=== PATIENT | female | born 1935 | race American Indian/Alaskan Native ===

== ENCOUNTER 2021-06-04 02:00 | Inpatient (IN) | payer MEDICARE ==
[2021-06-04] MEDS ORDERED: SODIUM CHLORIDE 0.9% 1000 ML 1,000 ML IV ONE (02:14)
--- NOTE | 2021-06-04 02:15 | Emergency Department Report ---
ED Altered Mental Status HPI - General Chief Complaint: Altered Mental Status Stated Complaint: SEIZURE/DEHYDRATION PUI?: No Time Seen by Provider: 06/04/21 02:10 Source: EMS Mode of arrival: Stretcher Limitations: Altered Mental Status, Physical Limitation - History of Present Illness Initial Comments: Patient is an 86-year-old female who presents emergency room with altered mental status, seizure-like activity. Patient's family called EMS. Patient brought in by EMS. Reports EMS states the patient has low blood pressure and tachycardic. EMS unable to obtain IV access. EMS unable to obtain an accurate blood pressure. EMS states patient has a past medical hypertension seizure. EMS does not know the patient's baseline. MD Complaint: altered mental status, decreased responsiveness -: Sudden Consistency of Symptoms: getting worse - Related Data Allergies Allergy/AdvReac Type Severity Reaction Status Date / Time No Known Allergies Allergy Verified 06/04/21 02:30 ED Review of Systems ROS: Stated complaint: SEIZURE/DEHYDRATION Other details as noted in HPI Comment: Unobtainable due to pts medical conditions ED Past Medical Hx - Past Medical History Previous Medical History?: Yes Hx Hypertension: Yes Hx Seizures: Yes - Surgical History Past Surgical History?: No - Family History Family history: no significant - Social History Smoking Status: Unknown if ever smoked Substance Use Type: None ED Physical Exam - General General appearance: obtunded - Head Head exam: Present: atraumatic, normocephalic - Eye Eye exam: Present: normal appearance, PERRL Pupils: Present: normal accommodation - ENT ENT exam: Present: mucous membranes dry - Neck Neck exam: Present: normal inspection - Respiratory Respiratory exam: Present: normal lung sounds bilaterally. Absent: respiratory distress, wheezes, rales - Cardiovascular Cardiovascular Exam: Present: regular rate, normal rhythm, tachycardia, normal heart sounds. Absent: systolic murmur, diastolic murmur, rubs, gallop - GI/Abdominal GI/Abdominal exam: Present: soft, normal bowel sounds. Absent: distended, tenderness, guarding - Rectal Rectal exam: Present: deferred - Extremities Exam Extremities exam: Present: normal inspection, other (Lower extremities are contracted.) - Back Exam Back exam: Present: normal inspection - Neurological Exam Neurological exam: Present: altered - Expanded Neurological Exam Expanded Best Eye Response (James): (4) open spontaneously Best Motor Response (James): (4) withdraws to pain Best Verbal Response ([place]): (2) incomprehsible sounds [place] Total: 10 - Psychiatric Psychiatric exam: Present: normal affect, normal mood - Skin Skin exam: Present: warm, dry, intact, normal color. Absent: rash - Assessment Assessment Interval: Baseline - Level of Consciousness 1a. Level of Consciousness: alert/keenly responsive - LOC Questions 1b. LOC Questions: aphasic - LOC Command 1c. LOC Commands: performs no tasks correctly - Best Gaze 2. Best Gaze: normal - Visual 3. Visual: no visual loss - Facial Palsy 4. Facial Palsy: normal symmetrical movement - Motor Arm 5a. Motor Arm Left: some gravity effort 5b. Motor Arm Right: some gravity effort - Motor Leg 6a. Motor Leg Left: some gravity effort 6b. Motor Leg Right: some gravity effort - Limb Ataxia 7. Limb Ataxia: absent - Sensory 8. Sensory: normal - Best Language 9. Best Language: no aphasia - Dysarthria 10. Dysarthria: normal - Extinction and Inattention 11. Extinction/Inattention: no abnormality - Scoring Total Score: 12 Stroke Severity: Moderate Stroke ED Course Vital Signs 06/04/21 06/04/21 06/04/21 02:29 03:09 03:35 Temperature 95.9 F L Pulse Rate 120 H Respiratory 16 Rate Blood Pressure Blood Pressure 135/86 [Right] O2 Sat by Pulse 100 100 98 Oximetry 06/04/21 06/04/21 04:00 05:05 Temperature 96.5 F L Pulse Rate 90 88 Respiratory 17 14 Rate Blood Pressure 165/97 Blood Pressure 148/94 [Right] O2 Sat by Pulse 97 100 Oximetry - Reevaluation(s) Reevaluation #1: Patient's heart rate is improved. Patient's blood pressure has been stable. No change in the patient's mentation. 06/04/21 03:19 Reevaluation #2: Patient to be admitted. 06/04/21 04:20 - Consultations Consultation #1: Hospitalist consulted for admission. Hospitalist to admit patient. 06/04/21 04:20 - Lab Data Result diagrams: 06/04/21 02:28 06/04/21 02:28 Lab Results 06/04/21 06/04/21 06/04/21 Range/Units 02:28 02:28 02:28 WBC 6.8 (4.5-11.0) K/mm3 RBC 4.23 (3.65-5.03) M/mm3 Hgb 13.6 (10.1-14.3) gm/dl Hct 41.2 (30.3-42.9) % MCV 97 (79-97) fl MCH 32 (28-32) pg MCHC 33 (30-34) % RDW 15.7 H (13.2-15.2) % Plt Count 204 (140-440) K/mm3 Lymph % (Auto) 27.5 (13.4-35.0) % [place] % (Auto) 2.6 (0.0-7.3) % Eos % (Auto) 0.1 (0.0-4.3) % Baso % (Auto) 0.1 (0.0-1.8) % Lymph # (Auto) 1.9 (1.2-5.4) K/mm3 [place] # (Auto) 0.2 (0.0-0.8) K/mm3 Eos # (Auto) 0.0 (0.0-0.4) K/mm3 Baso # (Auto) 0.0 (0.0-0.1) K/mm3 Seg Neutrophils % 69.7 (40.0-70.0) % Seg Neutrophils # 4.8 (1.8-7.7) K/mm3 PT 14.1 (12.2-14.9) Sec. INR 1.04 (0.87-1.13) APTT 27.2 (24.2-36.6) Sec. Sodium 158 H (137-145) mmol/L Potassium 4.3 (3.6-5.0) mmol/L Chloride 117.0 H (98-107) mmol/L Carbon Dioxide 26 (22-30) mmol/L Anion Gap 19 mmol/L BUN 45 H (7-17) mg/dL Creatinine 1.1 (0.6-1.2) mg/dL Estimated GFR 47 ml/min BUN/Creatinine Ratio 41 % Glucose 174 H (65-100) mg/dL Lactic Acid (0.7-2.0) mmol/L Calcium 9.6 (8.4-10.2) mg/dL Total Bilirubin 0.50 (0.1-1.2) mg/dL AST 15 (5-40) units/L ALT 11 (7-56) units/L Alkaline Phosphatase 119 (35-129) units/L Ammonia (25-60) umol/L Total Creatine Kinase 64 (30-135) units/L Troponin T 0.025 (0.00-0.029) ng/mL Total Protein 8.1 (6.3-8.2) g/dL Albumin 2.9 L (3.9-5) g/dL Albumin/Globulin Ratio 0.6 % Urine Color (Yellow) Urine Turbidity (Clear) Urine pH (5.0-7.0) Ur Specific [place] (1.003-1.030) Urine Protein (Negative) mg/dL Urine Glucose (UA) (Negative) mg/dL Urine Ketones (Negative) mg/dL Urine Blood (Negative) Urine Nitrite (Negative) Urine Bilirubin (Negative) Urine Urobilinogen (<2.0) mg/dL Ur Leukocyte Esterase (Negative) Urine WBC (Auto) (0.0-6.0) /HPF Urine RBC (Auto) (0.0-6.0) /HPF U Epithel Cells (Auto) (0-13.0) /HPF 06/04/21 06/04/21 06/04/21 Range/Units 02:28 02:28 03:07 WBC (4.5-11.0) K/mm3 RBC (3.65-5.03) M/mm3 Hgb (10.1-14.3) gm/dl Hct (30.3-42.9) % MCV (79-97) fl MCH (28-32) pg MCHC (30-34) % RDW (13.2-15.2) % Plt Count (140-440) K/mm3 Lymph % (Auto) (13.4-35.0) % [place] % (Auto) (0.0-7.3) % Eos % (Auto) (0.0-4.3) % Baso % (Auto) (0.0-1.8) % Lymph # (Auto) (1.2-5.4) K/mm3 [place] # (Auto) (0.0-0.8) K/mm3 Eos # (Auto) (0.0-0.4) K/mm3 Baso # (Auto) (0.0-0.1) K/mm3 Seg Neutrophils % (40.0-70.0) % Seg Neutrophils # (1.8-7.7) K/mm3 PT (12.2-14.9) Sec. INR (0.87-1.13) APTT (24.2-36.6) Sec. Sodium (137-145) mmol/L Potassium (3.6-5.0) mmol/L Chloride (98-107) mmol/L Carbon Dioxide (22-30) mmol/L Anion Gap mmol/L BUN (7-17) mg/dL Creatinine (0.6-1.2) mg/dL Estimated GFR ml/min BUN/Creatinine Ratio % Glucose (65-100) mg/dL Lactic Acid 6.70 H* (0.7-2.0) mmol/L Calcium (8.4-10.2) mg/dL Total Bilirubin (0.1-1.2) mg/dL AST (5-40) units/L ALT (7-56) units/L Alkaline Phosphatase (35-129) units/L Ammonia 29.0 (25-60) umol/L Total Creatine Kinase (30-135) units/L Troponin T (0.00-0.029) ng/mL Total Protein (6.3-8.2) g/dL Albumin (3.9-5) g/dL Albumin/Globulin Ratio % Urine Color Yellow (Yellow) Urine Turbidity Clear (Clear) Urine pH 5.0 (5.0-7.0) Ur Specific [place] 1.025 (1.003-1.030) Urine Protein 30 mg/dl (Negative) mg/dL Urine Glucose (UA) Neg (Negative) mg/dL Urine Ketones Neg (Negative) mg/dL Urine Blood Mod (Negative) Urine Nitrite Neg (Negative) Urine Bilirubin Neg (Negative) Urine Urobilinogen 2.0 (<2.0) mg/dL Ur Leukocyte Esterase Neg (Negative) Urine WBC (Auto) 1.0 (0.0-6.0) /HPF Urine RBC (Auto) 5.0 (0.0-6.0) /HPF U Epithel Cells (Auto) 1.0 (0-13.0) /HPF 06/04/21 06/04/21 Range/Units 04:02 04:02 WBC (4.5-11.0) K/mm3 RBC (3.65-5.03) M/mm3 Hgb (10.1-14.3) gm/dl Hct (30.3-42.9) % MCV (79-97) fl MCH (28-32) pg MCHC (30-34) % RDW (13.2-15.2) % Plt Count (140-440) K/mm3 Lymph % (Auto) (13.4-35.0) % [place] % (Auto) (0.0-7.3) % Eos % (Auto) (0.0-4.3) % Baso % (Auto) (0.0-1.8) % Lymph # (Auto) (1.2-5.4) K/mm3 [place] # (Auto) (0.0-0.8) K/mm3 Eos # (Auto) (0.0-0.4) K/mm3 Baso # (Auto) (0.0-0.1) K/mm3 Seg Neutrophils % (40.0-70.0) % Seg Neutrophils # (1.8-7.7) K/mm3 PT (12.2-14.9) Sec. INR (0.87-1.13) APTT (24.2-36.6) Sec. Sodium (137-145) mmol/L Potassium (3.6-5.0) mmol/L Chloride (98-107) mmol/L Carbon Dioxide (22-30) mmol/L Anion Gap mmol/L BUN (7-17) mg/dL Creatinine (0.6-1.2) mg/dL Estimated GFR ml/min BUN/Creatinine Ratio % Glucose (65-100) mg/dL Lactic Acid < 0.20 L (0.7-2.0) mmol/L Calcium (8.4-10.2) mg/dL Total Bilirubin (0.1-1.2) mg/dL AST (5-40) units/L ALT (7-56) units/L Alkaline Phosphatase (35-129) units/L Ammonia (25-60) umol/L Total Creatine Kinase (30-135) units/L Troponin T 0.028 (0.00-0.029) ng/mL Total Protein (6.3-8.2) g/dL Albumin (3.9-5) g/dL Albumin/Globulin Ratio % Urine Color (Yellow) Urine Turbidity (Clear) Urine pH (5.0-7.0) Ur Specific [place] (1.003-1.030) Urine Protein (Negative) mg/dL Urine Glucose (UA) (Negative) mg/dL Urine Ketones (Negative) mg/dL Urine Blood (Negative) Urine Nitrite (Negative) Urine Bilirubin (Negative) Urine Urobilinogen (<2.0) mg/dL Ur Leukocyte Esterase (Negative) Urine WBC (Auto) (0.0-6.0) /HPF Urine RBC (Auto) (0.0-6.0) /HPF U Epithel Cells (Auto) (0-13.0) /HPF - EKG Data -: EKG Interpreted by Me EKG shows normal: sinus rhythm, axis, intervals, QRS complexes, ST-T waves Rate: normal - Radiology Data Radiology results: report reviewed, image reviewed interpreted by me: Chest x-ray: No pneumonia, no pneumothorax, no foreign body, no osseous findings, no acute findings CHEST 1 VIEW 06/04/2021 2:19 AM INDICATION / CLINICAL INFORMATION: Altered Mental Status. COMPARISON: None available. FINDINGS: The patient is rotated to the left. SUPPORT DEVICES: None. HEART / MEDIASTINUM: Moderate aortic atherosclerosis without other significant abnormalities. LUNGS / PLEURA: Retrocardiac opacities could represent summation of normal structures secondary to patient rotation. The lungs are otherwise clear. No significant pleural effusion. No pneumothorax. ADDITIONAL FINDINGS: No significant additional findings. IMPRESSION: Retrocardiac opacities are favored to be due to patient positioning. Close ra diographic follow-up with better patient positioning is recommended. No other acute findings. CT HEAD WITHOUT CONTRAST INDICATION : Altered Mental Status. Status post seizure. TECHNIQUE: Axial, coronal and sagittal CT imaging was performed from the skull apex through the skull base without contrast. All CT scans at this location are performed using CT dose reduction for ALARA by means of automated exposure control. COMPARISON: None available. FINDINGS: The study is limited by contracted positioning of the patient. The patient could not be positioned supine. Motion artifact also limits portions of the study. PARENCHYMA: No mass, midline shift, hemorrhage, extraaxial collection or acute territorial infarction. 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 VENTRICLES: Symmetric and normal in size. SOFT TISSUES: No significant abnormality of the included soft tissues/orbits. BONES: No acute osseous abnormality. SINUSES: Extensive opacification of the maxillary sinuses is noted without other significant abnormalities. ADDITIONAL FINDINGS: None. IMPRESSION: 1. No acute intracranial abnormality. 2. Additional findings as above. - Medical Decision Making Patient is an 86-year-old female who presents emergency room with altered mental status and possible seizure activity and possible dehydration. Patient brought in by EMS. EMS report received. EMS states that family saw seizure-like activity. Patient has been having a seizure and hypertension. Patient is minimally responsive. Baseline mental status is unknown. Patient had a head CT which is negative for acute finding. Patient had a chest x-ray which was negative for acute finding patient labs done which show dehydration and hypernatremia. Patient also found to have lactic acidosis. Patient had a EKG which was negative for acute findings. Patient was initially tachycardic and then after fluids the patient became sinus rhythm. Patient given early antibiotics. Patient admitted to the hospital service for further evaluation treatment. Critical care time documented due to the multiple reassessments, prolonged time at the bedside, interpretation of diagnostics and labs. - Differential Diagnosis Altered mental status, tachycardia, sepsis, UTI, dehydration Critical Care Time: Yes Critical care time in (mins) excluding proc time.: 35 Critical care attestation.: If time is entered above; I have spent that time in minutes in the direct care of this critically ill patient, excluding procedure time. Critical Care Time: 35 minutes ED Disposition Clinical Impression: Dehydration, Hypernatremia, Lactic acid acidosis, Seizure Altered mental status Qualifiers: Altered mental status type: unspecified Qualified Code(s): R41.82 - Altered mental status, unspecified Disposition: DC-09 OP ADMIT IP TO THIS HOSP Is pt being admited?: Yes Does the pt Need Aspirin: No Condition: Critical Time of Disposition: 04:24
[2021-06-04] MEDS ORDERED: levETIRAcetam 1000 MG/NS 0.75% 1,000 MG/100 ML BAG IV ONE (02:16)
[2021-06-04] MEDS ORDERED: CEFEPIME/NS 2 GM/100 ML 2 GM/100 ML BAG IV ONE (02:16)
[2021-06-04 02:43] LABS: Basophils % (Auto) 0.1 % (0.0-1.8); Eosinophils % (Auto) 0.1 % (0.0-4.3); Hematocrit 41.2 % (30.3-42.9); Hemoglobin 13.6 gm/dl (10.1-14.3); Lymphocytes # (Auto) 1.9 K/mm3 (1.2-5.4); Lymphocytes % (Auto) 27.5 % (13.4-35.0); Mean Corpuscular HGB Conc 33 % (30-34); Mean Corpuscular Volume 97 fl (79-97); Monocytes # (Auto) 0.2 K/mm3 (0.0-0.8); Monocytes % (Auto) 2.6 % (0.0-7.3); Platelet Count 204 K/mm3 (140-440); Red Blood Count 4.23 M/mm3 (3.65-5.03); Red Cell Distribution Width 15.7 % (13.2-15.2)
--- NOTE | 2021-06-04 02:44 | XRay Report ---
CHEST 1 VIEW 06/04/2021 2:19 AM INDICATION / CLINICAL INFORMATION: Altered Mental Status. COMPARISON: None available. FINDINGS: The patient is rotated to the left. SUPPORT DEVICES: None. HEART / MEDIASTINUM: Moderate aortic atherosclerosis without other significant abnormalities. LUNGS / PLEURA: Retrocardiac opacities could represent summation of normal structures secondary to pa tient rotation. The lungs are otherwise clear. No significant pleural effusion. No pneumothorax. ADDITIONAL FINDINGS: No significant additional findings. IMPRESSION: Retrocardiac opacities are favored to be due to patient positioning. Close radiographic follow-up wit h better patient positioning is recommended. No other acute findings. Signer Name: Jose Daniel Lowe MD Signed: 06/04/2021 2:39 AM Workstation Name: [id number]
[2021-06-04 02:52] LABS: INR 1.04 (0.87-1.13); Partial Thromboplastin Time 27.2 Sec. (24.2-36.6)
[2021-06-04 03:03] LABS: Albumin 2.9 g/dL (3.9-5); Calcium 9.6 mg/dL (8.4-10.2)
[2021-06-04] MEDS ORDERED: SODIUM CHLORIDE 0.9% 1000 ML IV SOLN IV ONE (03:22)
[2021-06-04 03:25] LABS: Bilirubin,Urine NEG (Negative); Blood,Urine MOD (Negative); Color,Urine Yellow (Yellow)
--- NOTE | 2021-06-04 04:00 | Cat Scan Report ---
CT HEAD WITHOUT CONTRAST INDICATION : Altered Mental Status. Status post seizure. TECHNIQUE: Axial, coronal and sagittal CT imaging was performed from the skull apex through the skul l base without contrast. All CT scans at this location are performed using CT dose reduction for ALA RA by means of automated exposure control. COMPARISON: None available. FINDINGS: The study is limited by contracted positioning of the patient. The patient could not be positioned [place]. Motion artifact also limits portions of the study. PARENCHYMA: No mass, midline shift, hemorrhage, extraaxial collection or acute territorial infarctio n. Areas of low attenuation along the periventricular white matter are likely related to chronic murtaza roangiopathy. VENTRICLES: Symmetric and normal in size. SOFT TISSUES: No significant abnormality of the included soft tissues/orbits. BONES: No acute osseous abnormality. SINUSES: Extensive opacification of the maxillary sinuses is noted without other significant abnormal ities. ADDITIONAL FINDINGS: None. IMPRESSION: 1. No acute intracranial abnormality. 2. Additional findings as above. Signer Name: Jose Daniel Lowe MD Signed: 06/04/2021 3:55 AM Workstation Name: [id number]
--- NOTE | 2021-06-04 05:11 | History and Physical Report ---
History of Present Illness Date of examination: 06/04/21 Date of admission: 06/04/21 Chief complaint: Altered mental status History of present illness: This is a 86-year-old female who presents to emergency room with altered mental status and seizure-like activity. Patient has a past medical history of hypertension and seizures. Patient seen in the ED awake, confused, and appears very frail and her bilateral legs contracted. I reviewed patients medical record lab values -patient has elevated sodium 158, CT of the head done no acute finding. Checks x-ray no acute finding. Per ED Reports EMS states the patient has low blood pressure and tachycardic. Will admit patient for dehydration and altered mental status. Patient started on IV hydration Past History Past Medical History: seizures Past Surgical History: Other (Unable to assess patient is confused. No family present at time of assessment) Medications and Allergies Allergies Allergy/AdvReac Type Severity Reaction Status Date / Time No Known Allergies Allergy Verified 06/04/21 02:30 Review of Systems Constitutional: fatigue, weakness, malaise Ears, nose, mouth and throat: no epistaxis, no bleeding gums Gastrointestinal: no melena Rectal: no hemorrhoids Integumentary: no rash, no pruritis Neurological: seizures Psychiatric: anxiety Hematologic/Lymphatic: no easy bruising, no easy bleeding Allergic/Immunologic: no urticaria Exam - Constitutional Vitals: Temp Pulse Resp BP Pulse Ox 95.9 F L 90 17 165/97 97 06/04/21 03:09 06/04/21 04:00 06/04/21 04:00 06/04/21 04:00 06/04/21 04:00 General appearance: Present: no acute distress, mild distress, cachectic (Frail appearing elderly patient in position) - EENT Eyes: Present: PERRL ENT: hearing intact, clear oral mucosa - Neck Neck: Present: supple, normal ROM - Respiratory Respiratory effort: normal Respiratory: bilateral: CTA - Cardiovascular Heart rate: 88 Heart Sounds: Present: S1 & S2. Absent: rub, click - Extremities Extremities: pulses symmetrical, No edema Peripheral Pulses: within normal limits - Abdominal General gastrointestinal: Present: soft, non-tender, non-distended, normal bowel sounds Female genitourinary: Present: normal - Integumentary Integumentary: Present: clear, warm, dry - Musculoskeletal Musculoskeletal: generalized weakness (Bilateral extremity contraction) - Psychiatric Psychiatric: appropriate mood/affect, intact judgment & insight - Neurologic Neurologic: CNII-XII intact, other (Bilateral legs contracted) - Allied Health Allied health notes reviewed: nursing, PT HEART Score - HEART Score Troponin: Troponin T 0.028 ng/mL (0.00-0.029) 06/04/21 04:02 Results - Labs CBC & Chem 7: 06/04/21 02:28 06/04/21 02:28 Labs: Abnormal lab results 06/04/21 06/04/21 06/04/21 Range/Units 02:28 02:28 02:28 RDW 15.7 H (13.2-15.2) % Sodium 158 H (137-145) mmol/L Chloride 117.0 H (98-107) mmol/L BUN 45 H (7-17) mg/dL Glucose 174 H (65-100) mg/dL Lactic Acid 6.70 H* (0.7-2.0) mmol/L Albumin 2.9 L (3.9-5) g/dL 06/04/21 Range/Units 04:02 RDW (13.2-15.2) % Sodium (137-145) mmol/L Chloride (98-107) mmol/L BUN (7-17) mg/dL Glucose (65-100) mg/dL Lactic Acid < 0.20 L (0.7-2.0) mmol/L Albumin (3.9-5) g/dL Assessment and Plan - Patient Problems (1) Acute metabolic encephalopathy Status: Acute Plan to address problem: Questionable cause-dehydration/infection Patient confused with verbal stimuli Unable to obtain information from patient due to confusion Safety and fall precaution Blood culture done (2) Dehydration Status: Acute Plan to address problem: Likely secondary to decreased free water intake Continue IV hydration Encourage oral intake (3) Hypernatremia Status: Acute Plan to address problem: Likely secondary to dehydration/decreased oral fluid intake Monitor sodium level Continue IV hydration (4) Lactic acid acidosis Status: Acute Plan to address problem: Questionable cause but has improved continue IV hydration Blood culture follow-up with results trend lactic acid (5) Seizure Status: Acute Plan to address problem: Seizure precaution We will resume home antiseizure medication (6) Severe protein-calorie malnutrition Status: Acute Plan to address problem: Bridge Crew Member consult Encourage oral intake (7) DVT prophylaxis Status: Acute Plan to address problem: Subcutaneous Lovenox
[2021-06-04] MEDS ORDERED: ALUM-MAG HYDROXIDE-SIMETHICONE 200-200-20MG/5ML ORAL LIQD 30 ML PO PRN (05:47)
[2021-06-04] MEDS ORDERED: HYDROcodone/ACETAMINOPHEN 5-325 MG TAB PO PRN (05:47)
[2021-06-04] MEDS ORDERED: NALOXONE 0.4 MG/1 ML INJ IV PRN (05:47)
[2021-06-04] MEDS ORDERED: ONDANSETRON 4 MG/2 ML INJ IV PRN ×2 (05:47→05:51)
[2021-06-04] MEDS ORDERED: MORPHINE 2 MG/1 ML INJ IV PRN (05:47)
[2021-06-04] MEDS ORDERED: ACETAMINOPHEN 325 MG TAB PO PRN ×2 (05:47→05:51)
[2021-06-04] MEDS ORDERED: MAGNESIUM HYDROXIDE (MOM) ORAL LIQD UDC PO PRN (05:47)
[2021-06-04] MEDS ORDERED: LORazepam 2 MG/ML VIAL IV PRN (05:54)
[2021-06-04] MEDS ORDERED: D5W/0.9% NACL 1,000 ML IV SCH (06:00)
[2021-06-04] MEDS: levETIRAcetam 500 MG in DEXTROSE 5% IN WATER 100 ML IV SCH ×2 (11:11→22:39)
[2021-06-04] MEDS: ENOXAPARIN 30 MG/0.3 ML INJ SUB-Q SCH (11:12)
--- NOTE | 2021-06-04 14:10 | Event Note ---
Date: 06/04/21 Patient was seen and evaluated this morning, patient was emaciated, old woman. Contracted extremities. WBC was within normal limit, no fever patient had elevated lactic acid level and likely due to dehydration. Continue with IV fluids and monitor. Patient was admitted earlier this morning and continue management as outlined in HPI.
--- NOTE | 2021-06-04 17:59 | Electrocardiograph Report ---
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
[2021-06-04] MEDS: SODIUM CHLORIDE 0.45% 1000 ML 1,000 ML IV SCH (18:17)
[2021-06-05] MEDS: SODIUM CHLORIDE 0.45% 1000 ML 1,000 ML IV SCH (05:30)
[2021-06-05 06:00] LABS: Alanine Aminotransferase 9 units/L (7-56); Albumin 2.4 g/dL (3.9-5); Basophils % (Auto) 0.1 % (0.0-1.8); Blood Urea Nitrogen 37 mg/dL (7-17); Calcium 8.9 mg/dL (8.4-10.2); Eosinophils % (Auto) 0.6 % (0.0-4.3); Hematocrit 33.4 % (30.3-42.9); Hemoglobin 11.4 gm/dl (10.1-14.3); Hemolysis Index 2; Lymphocytes # (Auto) 1.4 K/mm3 (1.2-5.4); Mean Corpuscular HGB Conc 34 % (30-34); Mean Corpuscular Volume 96 fl (79-97); Monocytes # (Auto) 0.3 K/mm3 (0.0-0.8); Monocytes % (Auto) 3.9 % (0.0-7.3); Platelet Count 162 K/mm3 (140-440); Red Blood Count 3.49 M/mm3 (3.65-5.03); Red Cell Distribution Width 15.2 % (13.2-15.2)
[2021-06-05 06:01] LABS: BUN/Creatinine Ratio 53
[2021-06-05] MEDS: POTASSIUM CHLORIDE 20 MEQ PACKET PO SCH ×3 (07:40→17:30)
[2021-06-05] MEDS ORDERED: SODIUM CHLORIDE 0.45% 500 ML IV SCH (09:00)
[2021-06-05] MEDS ORDERED: MAGNESIUM SULFATE 1 GM in SODIUM CHLORIDE 0.9% 50 ML IV ONE (09:00)
[2021-06-05] MEDS: ENOXAPARIN 30 MG/0.3 ML INJ SUB-Q SCH (10:10)
[2021-06-05] MEDS: levETIRAcetam 500 MG in DEXTROSE 5% IN WATER 100 ML IV SCH ×2 (10:10→23:40)
--- NOTE | 2021-06-05 12:06 | Progress Note ---
Assessment and Plan - Patient Problems (1) Hypernatremia Current Visit: Yes Status: Acute Plan to address problem: IV fluid resuscitation therapy, BMP, repeat BMP in a.m., (2) Lactic acid acidosis Current Visit: Yes Status: Acute Plan to address problem: IV for cessation therapy, supportive care. Repeat BMP in a.m. (3) Acute metabolic encephalopathy Current Visit: No Status: Acute Plan to address problem: Neuro check, seizure precaution, aspiration precaution, fall precaution, supportive care. (4) Severe protein-calorie malnutrition Current Visit: No Status: Acute Plan to address problem: Increase protein intake, dietary supplementation (5) DVT prophylaxis Current Visit: No Status: Acute Plan to address problem: SCD to bilateral lower extremities while in bed, prophylactic anticoagulation. (6) Vascular dementia Current Visit: Yes Status: Acute Qualifiers: Dementia behavioral disturbance: without behavioral disturbance Qualified Code(s): F01.50 - Vascular dementia without behavioral disturbance Plan to address problem: Verbal prompting, verbal redirection, supportive care. (7) Cerebral atherosclerosis Current Visit: Yes Status: Acute Plan to address problem: Risk factor reduction, supportive care, antiplatelet therapy as clinically indicated.. (8) Advance care planning Current Visit: Yes Status: Acute Plan to address problem: Disease education conducted, care plan discussed, diagnosis discussed, prognosis discussed. Patient family acknowledges understanding and agreement with care plan. Patient daughter elects to have home hospice evaluation. +30 minutes. History Interval history: 86 YO Female with vascular dementia, cerebral atherosclerosis, debility, Volume Depletion, Severe Malnutrition, Hypernatremia, Lactic Acidosis, Debility. Patient lying in bed, no reported nursing events. Patient is nonverbal, contracted. No clinical signs of pain. Hospitalist Physical - Constitutional Vitals: Temp Pulse Resp BP Pulse Ox 97.7 F 74 25 H 149/91 94 06/05/21 02:30 06/05/21 03:00 06/05/21 03:00 06/05/21 06:03 06/05/21 11:27 General appearance: Present: no acute distress, mild distress, cachectic (Frail appearing elderly patient in position) - EENT Eyes: Present: PERRL - Neck Neck: Present: supple - Respiratory Respiratory: bilateral: diminished - Cardiovascular Rhythm: regular Heart Sounds: Present: S1 & S2 - Extremities Extremities: no ischemia Peripheral Pulses: within normal limits - Abdominal General gastrointestinal: soft, non-distended - Integumentary Integumentary: Present: warm, clammy, decreased turgor - Psychiatric Psychiatric: no appropriate mood/affect, no intact judgment & insight, no memory intact - Neurologic Neurologic: CNII-XII intact, no focal deficits, moves all extremities, no gait normal HEART Score - HEART Score Troponin: Troponin T 0.028 ng/mL (0.00-0.029) 06/04/21 04:02 Results - Labs CBC & Chem 7: 06/05/21 05:10 06/06/21 05:19 Labs: Laboratory Last Values WBC 6.5 K/mm3 (4.5-11.0) 06/05/21 05:10 RBC 3.49 M/mm3 (3.65-5.03) L 06/05/21 05:10 Hgb 11.4 gm/dl (10.1-14.3) 06/05/21 05:10 Hct 33.4 % (30.3-42.9) D 06/05/21 05:10 MCV 96 fl (79-97) 06/05/21 05:10 MCH 33 pg (28-32) H 06/05/21 05:10 MCHC 34 % (30-34) 06/05/21 05:10 RDW 15.2 % (13.2-15.2) 06/05/21 05:10 Plt Count 162 K/mm3 (140-440) 06/05/21 05:10 Lymph % (Auto) 21.0 % (13.4-35.0) 06/05/21 05:10 [place] % (Auto) 3.9 % (0.0-7.3) 06/05/21 05:10 Eos % (Auto) 0.6 % (0.0-4.3) 06/05/21 05:10 Baso % (Auto) 0.1 % (0.0-1.8) 06/05/21 05:10 Lymph # (Auto) 1.4 K/mm3 (1.2-5.4) 06/05/21 05:10 [place] # (Auto) 0.3 K/mm3 (0.0-0.8) 06/05/21 05:10 Eos # (Auto) 0.0 K/mm3 (0.0-0.4) 06/05/21 05:10 Baso # (Auto) 0.0 K/mm3 (0.0-0.1) 06/05/21 05:10 Seg Neutrophils % 74.4 % (40.0-70.0) H 06/05/21 05:10 Seg Neutrophils # 4.9 K/mm3 (1.8-7.7) 06/05/21 05:10 PT 14.1 Sec. (12.2-14.9) 06/04/21 02:28 INR 1.04 (0.87-1.13) 06/04/21 02:28 APTT 27.2 Sec. (24.2-36.6) 06/04/21 02:28 Sodium 152 mmol/L (137-145) H 06/05/21 05:10 Potassium 2.9 mmol/L (3.6-5.0) L* D 06/05/21 05:10 Chloride 116.0 mmol/L (98-107) H 06/05/21 05:10 Carbon Dioxide 27 mmol/L (22-30) 06/05/21 05:10 Anion Gap 12 mmol/L 06/05/21 05:10 BUN 37 mg/dL (7-17) H 06/05/21 05:10 Creatinine 0.7 mg/dL (0.6-1.2) 06/05/21 05:10 Estimated GFR > 60 ml/min 06/05/21 05:10 BUN/Creatinine Ratio 53 % 06/05/21 05:10 Glucose 92 mg/dL (65-100) 06/05/21 05:10 POC Glucose 99 mg/dL (70-105) 06/04/21 17:32 Lactic Acid 2.30 mmol/L (0.7-2.0) H* 06/04/21 07:54 Calcium 8.9 mg/dL (8.4-10.2) 06/05/21 05:10 Total Bilirubin 0.40 mg/dL (0.1-1.2) 06/05/21 05:10 AST 20 units/L (5-40) 06/05/21 05:10 ALT 9 units/L (7-56) 06/05/21 05:10 Alkaline Phosphatase 95 units/L (35-129) 06/05/21 05:10 Ammonia 29.0 umol/L (25-60) 06/04/21 02:28 Total Creatine Kinase 64 units/L (30-135) 06/04/21 02:28 Troponin T 0.028 ng/mL (0.00-0.029) 06/04/21 04:02 Total Protein 6.3 g/dL (6.3-8.2) D 06/05/21 05:10 Albumin 2.4 g/dL (3.9-5) L 06/05/21 05:10 Albumin/Globulin Ratio 0.6 % 06/05/21 05:10 Urine Color Yellow (Yellow) 06/04/21 03:07 Urine Turbidity Clear (Clear) 06/04/21 03:07 Urine pH 5.0 (5.0-7.0) 06/04/21 03:07 Ur Specific [place] 1.025 (1.003-1.030) 06/04/21 03:07 Urine Protein 30 mg/dl mg/dL (Negative) 06/04/21 03:07 Urine Glucose (UA) Neg mg/dL (Negative) 06/04/21 03:07 Urine Ketones Neg mg/dL (Negative) 06/04/21 03:07 Urine Blood Mod (Negative) 06/04/21 03:07 Urine Nitrite Neg (Negative) 06/04/21 03:07 Urine Bilirubin Neg (Negative) 06/04/21 03:07 Urine Urobilinogen 2.0 mg/dL (<2.0) 06/04/21 03:07 Ur Leukocyte Esterase Neg (Negative) 06/04/21 03:07 Urine WBC (Auto) 1.0 /HPF (0.0-6.0) 06/04/21 03:07 Urine RBC (Auto) 5.0 /HPF (0.0-6.0) 06/04/21 03:07 U Epithel Cells (Auto) 1.0 /HPF (0-13.0) 06/04/21 03:07 Microbiology: Microbiology 06/04/21 02:28 Peripheral/Venous Blood Culture - Preliminary NO GROWTH AFTER 24 HOURS 06/04/21 02:21 Peripheral/Venous Blood Culture - Preliminary NO GROWTH AFTER 24 HOURS [place]/IV: Voiding Method Incontinent Active Medications - Current Medications Current Medications: Generic Name Dose Route Start Last Admin Trade Name Freq PRN Reason Stop Dose Admin Acetaminophen 650 mg 06/04/21 05:47 Acetaminophen 325 Mg Tab PO Q4H PRN Pain MILD(1-3)/Fever >100.5/LINDSEY Al Hydrox/Mg Hydrox/Simethicone 30 ml 06/04/21 05:47 Alum-Mag Hydroxide-Simethicone [id number]/5ml Oral Liqd 30 Ml PO Q4H PRN Indigestion Enoxaparin Sodium 30 mg 06/04/21 10:00 06/05/21 10:10 Enoxaparin 30 Mg/0.3 Ml Inj SUB-Q 30 mg DAILY ANDRES Administration Protocol Sodium Chloride 1,000 mls @ 75 mls/hr 06/04/21 07:00 06/05/21 05:30 Nacl 0.45% 1000 Ml IV 75 mls/hr DIRECT ANDRES Administration Levetiracetam 500 mg/ Dextrose 105 mls @ 400 mls/hr 06/04/21 10:00 06/05/21 10:10 IV 400 mls/hr Q12HR ANDRES Administration Lorazepam 2 mg 06/04/21 05:54 Lorazepam 2 Mg/Ml Vial IV Q1H PRN Seizures Magnesium Hydroxide 30 ml 06/04/21 05:47 Magnesium Hydroxide (Mom) Oral Liqd Udc PO Q4H PRN Constipation Naloxone HCl 0.1 mg 06/04/21 05:47 Naloxone 0.4 Mg/1 Ml Inj IV Q2MIN PRN Res Rate </= 8 or 02 SAT < 92% Ondansetron HCl 4 mg 06/04/21 05:47 Ondansetron 4 Mg/2 Ml Inj IV Q8H PRN Nausea And Vomiting Potassium Chloride 40 meq 06/05/21 08:00 06/05/21 07:40 Potassium Chloride 20 Meq Packet PO 06/05/21 16:01 40 meq Q4H ANDRES Administration Sodium Chloride 10 ml 06/04/21 10:00 06/05/21 10:11 Sodium Chloride 0.9% 10 Ml Flush Syringe IV 10 ml BID ANDRES Administration Nutrition/Malnutrition Assess - Dietary Evaluation Nutrition/Malnutrition Findings: Nutrition Notes Start: 06/04/21 07:21 Freq: Status: Active Protocol: Document 06/04/21 07:22 LESVIA (Rec: 06/04/21 07:25 LESVIA [id number]) Nutrition Notes Need for Assessment generated from: MD Order Initial or Follow up Assessment Other Pertinent Diagnosis AMS, dehydration, seizure Current Diet regular Labs/Tests Na 158 Pertinent Medications reviewed Height 5 ft 1 in Weight 34 kg [place] Body Weight (kg) 47.72 BMI 14.1 Weight Status Emaciated Subjective/Other Information MD consult for ONS. Pt on hold in ED. #1 Nutrition Diagnosis Predicted suboptimal energy intake Etiology advanced age As Evidenced by Signs and Symptoms BMI 14.2 Is patient on ventilator? No Is Patient Ambulatory and/or Out of Bed No REE-([place]-confined to bed) 856.896 Kcal/Kg value to use for calculation 37 Approximate Energy Requirements Using 1258 kcal/Kg Calculation Used for Recommendations Kcal/kg Additional Notes Protein: (1.2-1.5g/kg) 41-51g Fluid: 1 ml/kcal Nutrition Intervention Change Diet Order: continue Add Supplement/Snack (indicate name/kcal Ensure Enlive BID /protein ) Provides kCal: 700 Provides Protein (gm) 40 Goal #1 Meet at least 75% of energy and protein needs via PO and ONS Anticipated Discharge Needs: regular with ONS BID Follow-Up By: 06/07/21 Additional Comments FU for assessment, intakes and ONS tolerance
[2021-06-06 06:32] LABS: Blood Urea Nitrogen 27 mg/dL (7-17); Calcium 8.8 mg/dL (8.4-10.2); Hemolysis Index 6
[2021-06-06 06:34] LABS: BUN/Creatinine Ratio 45
[2021-06-06] MEDS: ENOXAPARIN 30 MG/0.3 ML INJ SUB-Q SCH (10:18)
[2021-06-06] MEDS: levETIRAcetam 500 MG in DEXTROSE 5% IN WATER 100 ML IV SCH ×2 (10:19→22:23)
[2021-06-06] MEDS ORDERED: SODIUM CHLORIDE 0.45% 500 ML IV SCH (12:00)
[2021-06-06] MEDS: SODIUM CHLORIDE 0.45% 1000 ML 1,000 ML IV SCH ×2 (12:17→17:55)
--- NOTE | 2021-06-06 12:20 | Progress Note ---
Assessment and Plan - Patient Problems (1) Hypernatremia Current Visit: Yes Status: Acute Plan to address problem: IV fluid resuscitation therapy, BMP, repeat BMP in a.m., (2) Lactic acid acidosis Current Visit: Yes Status: Acute Plan to address problem: IV for cessation therapy, supportive care. Repeat BMP in a.m. (3) Acute metabolic encephalopathy Current Visit: No Status: Acute Plan to address problem: Neuro check, seizure precaution, aspiration precaution, fall precaution, supportive care. (4) Severe protein-calorie malnutrition Current Visit: No Status: Acute Plan to address problem: Increase protein intake, dietary supplementation (5) DVT prophylaxis Current Visit: No Status: Acute Plan to address problem: SCD to bilateral lower extremities while in bed, prophylactic anticoagulation. (6) Vascular dementia Current Visit: Yes Status: Acute Qualifiers: Dementia behavioral disturbance: without behavioral disturbance Qualified Code(s): F01.50 - Vascular dementia without behavioral disturbance Plan to address problem: Verbal prompting, verbal redirection, supportive care. (7) Cerebral atherosclerosis Current Visit: Yes Status: Acute Plan to address problem: Risk factor reduction, supportive care, antiplatelet therapy as clinically indicated.. (8) Advance care planning Current Visit: Yes Status: Acute Plan to address problem: Disease education conducted, care plan discussed, diagnosis discussed, prognosis discussed. Patient family acknowledges understanding and agreement with care plan. Patient daughter elects to have home hospice evaluation. +30 minutes. History Interval history: 86 YO Female with vascular dementia, cerebral atherosclerosis, debility, Volume Depletion, Severe Malnutrition, Hypernatremia, Lactic Acidosis, Debility. Patient lying in bed, no reported nursing events. Patient is nonverbal, contracted. No clinical signs of pain. Hospitalist Physical - Constitutional Vitals: Temp Pulse Resp BP Pulse Ox 98.0 F 93 H 18 99/65 96 06/06/21 04:59 06/06/21 04:59 06/06/21 04:59 06/06/21 04:59 06/06/21 12:05 General appearance: Present: no acute distress, mild distress, cachectic (Frail appearing elderly patient in position) - EENT Eyes: Present: PERRL - Neck Neck: Present: supple - Respiratory Respiratory effort: normal Respiratory: bilateral: diminished - Cardiovascular Rhythm: regular Heart Sounds: Present: S1 & S2 - Extremities Extremities: no ischemia Extremity abnormal: other (Bilateral lower extremity contracture) Peripheral Pulses: within normal limits - Abdominal General gastrointestinal: soft, non-tender - Integumentary Integumentary: Present: clear, dry, clammy - Psychiatric Psychiatric: no appropriate mood/affect, no intact judgment & insight, no memory intact - Neurologic Neurologic: CNII-XII intact, focal deficits, no gait normal HEART Score - HEART Score Troponin: Troponin T 0.028 ng/mL (0.00-0.029) 06/04/21 04:02 Results - Labs CBC & Chem 7: 06/05/21 05:10 06/06/21 05:19 Labs: Laboratory Last Values WBC 6.5 K/mm3 (4.5-11.0) 06/05/21 05:10 RBC 3.49 M/mm3 (3.65-5.03) L 06/05/21 05:10 Hgb 11.4 gm/dl (10.1-14.3) 06/05/21 05:10 Hct 33.4 % (30.3-42.9) D 06/05/21 05:10 MCV 96 fl (79-97) 06/05/21 05:10 MCH 33 pg (28-32) H 06/05/21 05:10 MCHC 34 % (30-34) 06/05/21 05:10 RDW 15.2 % (13.2-15.2) 06/05/21 05:10 Plt Count 162 K/mm3 (140-440) 06/05/21 05:10 Lymph % (Auto) 21.0 % (13.4-35.0) 06/05/21 05:10 [place] % (Auto) 3.9 % (0.0-7.3) 06/05/21 05:10 Eos % (Auto) 0.6 % (0.0-4.3) 06/05/21 05:10 Baso % (Auto) 0.1 % (0.0-1.8) 06/05/21 05:10 Lymph # (Auto) 1.4 K/mm3 (1.2-5.4) 06/05/21 05:10 [place] # (Auto) 0.3 K/mm3 (0.0-0.8) 06/05/21 05:10 Eos # (Auto) 0.0 K/mm3 (0.0-0.4) 06/05/21 05:10 Baso # (Auto) 0.0 K/mm3 (0.0-0.1) 06/05/21 05:10 Seg Neutrophils % 74.4 % (40.0-70.0) H 06/05/21 05:10 Seg Neutrophils # 4.9 K/mm3 (1.8-7.7) 06/05/21 05:10 PT 14.1 Sec. (12.2-14.9) 06/04/21 02:28 INR 1.04 (0.87-1.13) 06/04/21 02:28 APTT 27.2 Sec. (24.2-36.6) 06/04/21 02:28 Sodium 149 mmol/L (137-145) H 06/06/21 05:19 Potassium 3.9 mmol/L (3.6-5.0) D 06/06/21 05:19 Chloride 117.0 mmol/L (98-107) H 06/06/21 05:19 Carbon Dioxide 25 mmol/L (22-30) 06/06/21 05:19 Anion Gap 11 mmol/L 06/06/21 05:19 BUN 27 mg/dL (7-17) H 06/06/21 05:19 Creatinine 0.6 mg/dL (0.6-1.2) 06/06/21 05:19 Estimated GFR > 60 ml/min 06/06/21 05:19 BUN/Creatinine Ratio 45 % 06/06/21 05:19 Glucose 118 mg/dL (65-100) H 06/06/21 05:19 POC Glucose 99 mg/dL (70-105) 06/04/21 17:32 Lactic Acid 2.30 mmol/L (0.7-2.0) H* 06/04/21 07:54 Calcium 8.8 mg/dL (8.4-10.2) 06/06/21 05:19 Total Bilirubin 0.40 mg/dL (0.1-1.2) 06/05/21 05:10 AST 20 units/L (5-40) 06/05/21 05:10 ALT 9 units/L (7-56) 06/05/21 05:10 Alkaline Phosphatase 95 units/L (35-129) 06/05/21 05:10 Ammonia 29.0 umol/L (25-60) 06/04/21 02:28 Total Creatine Kinase 64 units/L (30-135) 06/04/21 02:28 Troponin T 0.028 ng/mL (0.00-0.029) 06/04/21 04:02 Total Protein 6.3 g/dL (6.3-8.2) D 06/05/21 05:10 Albumin 2.4 g/dL (3.9-5) L 06/05/21 05:10 Albumin/Globulin Ratio 0.6 % 06/05/21 05:10 Urine Color Yellow (Yellow) 06/04/21 03:07 Urine Turbidity Clear (Clear) 06/04/21 03:07 Urine pH 5.0 (5.0-7.0) 06/04/21 03:07 Ur Specific [place] 1.025 (1.003-1.030) 06/04/21 03:07 Urine Protein 30 mg/dl mg/dL (Negative) 06/04/21 03:07 Urine Glucose (UA) Neg mg/dL (Negative) 06/04/21 03:07 Urine Ketones Neg mg/dL (Negative) 06/04/21 03:07 Urine Blood Mod (Negative) 06/04/21 03:07 Urine Nitrite Neg (Negative) 06/04/21 03:07 Urine Bilirubin Neg (Negative) 06/04/21 03:07 Urine Urobilinogen 2.0 mg/dL (<2.0) 06/04/21 03:07 Ur Leukocyte Esterase Neg (Negative) 06/04/21 03:07 Urine WBC (Auto) 1.0 /HPF (0.0-6.0) 06/04/21 03:07 Urine RBC (Auto) 5.0 /HPF (0.0-6.0) 06/04/21 03:07 U Epithel Cells (Auto) 1.0 /HPF (0-13.0) 06/04/21 03:07 Microbiology: Microbiology 06/04/21 02:28 Peripheral/Venous Blood Culture - Preliminary NO GROWTH AFTER 48 HOURS 06/04/21 02:21 Peripheral/Venous Blood Culture - Preliminary NO GROWTH AFTER 48 HOURS 06/04/21 03:07 Urine,[place] Urine Culture - Preliminary NO GROWTH AFTER 24 HOURS [place]/IV: Voiding Method Incontinent Active Medications - Current Medications Current Medications: Generic Name Dose Route Start Last Admin Trade Name Freq PRN Reason Stop Dose Admin Acetaminophen 650 mg 06/04/21 05:47 Acetaminophen 325 Mg Tab PO Q4H PRN Pain MILD(1-3)/Fever >100.5/LINDSEY Al Hydrox/Mg Hydrox/Simethicone 30 ml 06/04/21 05:47 Alum-Mag Hydroxide-Simethicone [id number]/5ml Oral Liqd 30 Ml PO Q4H PRN Indigestion Enoxaparin Sodium 30 mg 06/04/21 10:00 06/06/21 10:18 Enoxaparin 30 Mg/0.3 Ml Inj SUB-Q 30 mg DAILY ANDRES Administration Protocol Levetiracetam 500 mg/ Dextrose 105 mls @ 400 mls/hr 06/04/21 10:00 06/06/21 10:19 IV 400 mls/hr Q12HR ANDRES Administration Sodium Chloride 1,000 mls @ 50 mls/hr 06/06/21 13:00 06/06/21 12:17 Nacl 0.45% 1000 Ml IV 50 mls/hr DIRECT ANDRES Administration Lorazepam 2 mg 06/04/21 05:54 06/06/21 01:24 Lorazepam 2 Mg/Ml Vial IV 2 mg Q1H PRN Administration Seizures Magnesium Hydroxide 30 ml 06/04/21 05:47 Magnesium Hydroxide (Mom) Oral Liqd Udc PO Q4H PRN Constipation Naloxone HCl 0.1 mg 06/04/21 05:47 Naloxone 0.4 Mg/1 Ml Inj IV Q2MIN PRN Res Rate </= 8 or 02 SAT < 92% Ondansetron HCl 4 mg 06/04/21 05:47 Ondansetron 4 Mg/2 Ml Inj IV Q8H PRN Nausea And Vomiting Sodium Chloride 10 ml 06/04/21 10:00 06/06/21 10:18 Sodium Chloride 0.9% 10 Ml Flush Syringe IV 10 ml BID ANDRES Administration Nutrition/Malnutrition Assess - Dietary Evaluation Nutrition/Malnutrition Findings: Nutrition Notes Start: 06/04/21 07:21 Freq: Status: Active Protocol: Document 06/04/21 07:22 LESVIA (Rec: 06/04/21 07:25 LESVIA [id number]) Nutrition Notes Need for Assessment generated from: MD Order Initial or Follow up Assessment Other Pertinent Diagnosis AMS, dehydration, seizure Current Diet regular Labs/Tests Na 158 Pertinent Medications reviewed Height 5 ft 1 in Weight 34 kg [place] Body Weight (kg) 47.72 BMI 14.1 Weight Status Emaciated Subjective/Other Information MD consult for ONS. Pt on hold in ED. #1 Nutrition Diagnosis Predicted suboptimal energy intake Etiology advanced age As Evidenced by Signs and Symptoms BMI 14.2 Is patient on ventilator? No Is Patient Ambulatory and/or Out of Bed No REE-([place]-confined to bed) 856.896 Kcal/Kg value to use for calculation 37 Approximate Energy Requirements Using 1258 kcal/Kg Calculation Used for Recommendations Kcal/kg Additional Notes Protein: (1.2-1.5g/kg) 41-51g Fluid: 1 ml/kcal Nutrition Intervention Change Diet Order: continue Add Supplement/Snack (indicate name/kcal Ensure Enlive BID /protein ) Provides kCal: 700 Provides Protein (gm) 40 Goal #1 Meet at least 75% of energy and protein needs via PO and ONS Anticipated Discharge Needs: regular with ONS BID Follow-Up By: 06/07/21 Additional Comments FU for assessment, intakes and ONS tolerance
--- NOTE | 2021-06-06 12:21 | Discharge Summary ---
Providers - Providers Date of Admission: 06/04/21 04:24 Attending physician: YESSI GALDAMEZ 06/04/21 Consult to Case Management [CONS] Routine Services Needed at Discharge: Sales Associate Key Holder Physical Therapy Occupational Therapy Notified:: ALVIN 06/04/21 05:49 Consult to Dietitian/Nutrition [CONS] Routine Physician Instructions: Reason For Exam: Reason for Consult: Pt needs oral supplement Primary care physician: RUBBER LINER Hospitalization Condition: Critical Hospital course: 86 YO Female with Severe Malnutrition, Debility, Vascular Dementia, Cerebral Atherosclerosis, Seizure Disorder presents to ED for evaluation. Patient had diminished cognition and was nonverbal at baseline and unable to provide history. Patient history provided by EMS staff, ED staff, as well as patient daughter who was made available by telephone for interview. As per daughter the patient has experienced decreased oral intake, progressive weakness, and was nonverbal and is unable to make needs known or follow commands. The patient is bedbound and nonambulatory. Patient requires 6/6 assistance with activities of daily living. Patient has a palliative performance score 30%. Patient has experienced weight loss over the past 30 days. As per daughter, the patient was found to have seizure activity today. EMS was notified and upon arrival the patient was found to be in distress and subsequently transported to [facility] for further care and evaluation of the aforementioned symptoms. The patient was seen and evaluated in the emergency department. All lab and imaging studies reviewed. Patient was found to have metabolic encephalopathy, hyponatremia, volume depletion, lactic acidosis. Patient admitted to medical floor due to increased risk of worsening symptoms for further care and evaluation. No reports of fever, chills, chest pain, palpitation, productive cough, skin rash, recent ill contacts, known exposure to COVID-19. No prior admission for review. No medication listed at time of admission for reconciliation. Advanced care planning conducted in ED. the patient was treated with IV fluid resuscitation therapy and supportive care. Patient is currently medically optimized with overall poor long-term prognosis. Patient daughter notified and informed of patient prognosis. Patient daughter elects to have home hospice evaluation. Patient discharged home in a.m. as per daughter request with home hospice evaluation. Patient seen and evaluated prior to discharge with no significant new significant exam findings. Patient discharged home under hospice care. 35 minutes dedicated to patient discharge and coordination of care. Disposition: DC-50 TO HOSPICE (HOME) Final Discharge Diagnosis (Prints w/discharge instructions): Severe malnutrition. Vascular dementia. Cerebral atherosclerosis - Discharge Diagnoses (1) Hypernatremia Status: Acute (2) Lactic acid acidosis Status: Acute (3) Acute metabolic encephalopathy Status: Acute (4) Severe protein-calorie malnutrition Status: Acute (5) DVT prophylaxis Status: Acute (6) Vascular dementia Status: Acute Qualifiers: Dementia behavioral disturbance: without behavioral disturbance Qualified Code(s): F01.50 - Vascular dementia without behavioral disturbance (7) Cerebral atherosclerosis Status: Acute (8) Advance care planning Status: Acute Core Measure Documentation - Palliative Care Palliative Care/ Comfort Measures: Hospice Care - Core Measures Any of the following diagnoses?: none Exam - Constitutional Vitals: Temp Pulse Resp BP Pulse Ox 98.0 F 93 H 18 99/65 96 06/06/21 04:59 06/06/21 04:59 06/06/21 04:59 06/06/21 04:59 06/06/21 12:05 General appearance: Present: mild distress, cachectic - EENT Eyes: Present: PERRL ENT: clear oral mucosa, hearing decreased - Neck Neck: Present: supple, normal ROM - Respiratory Respiratory: bilateral: diminished - Cardiovascular Heart Sounds: Present: S1 & S2. Absent: rub, click - Extremities Extremities: no ischemia Peripheral Pulses: within normal limits - Abdominal General gastrointestinal: Present: soft, non-tender, non-distended, normal bowel sounds Female genitourinary: Present: normal - Integumentary Integumentary: Present: clear, dry, clammy - Musculoskeletal Musculoskeletal: generalized weakness - Psychiatric Psychiatric: no appropriate mood/affect, no intact judgment & insight, no memory intact - Neurologic Neurologic: CNII-XII intact, no focal deficits, no moves all extremities, no gait normal Plan Activity: fall precautions Weight Bearing Status: Non-Weight Bearing Diet: advance as tolerated Special Instructions: home hospice Follow up with: PRIMARY CAREMD [Primary Care Provider] - 3-5 Days
--- NOTE | 2021-06-06 12:34 | History and Physical Report ---
History of Present Illness Date of admission: 06/04/21 04:24 Chief complaint: She is getting worse History of present illness: 86 YO Female with Severe Malnutrition, Debility, Vascular Dementia, Cerebral Atherosclerosis, Seizure Disorder presents to ED for evaluation. Patient has diminished cognition and is nonverbal at baseline and is unable to provide history. Patient history provided by EMS staff, ED staff, as well as patient daughter who was made available by telephone for interview. As per daughter the patient has experienced decreased oral intake, progressive weakness, and is currently nonverbal and is unable to make needs known or follow commands. The patient is bedbound and nonambulatory. Patient requires 6/6 assistance with activities of daily living. Patient has a palliative performance score 30%. Patient has experienced weight loss over the past 30 days. As per daughter, the patient was found to have seizure activity today. EMS was notified and upon arrival the patient was found to be in distress and subsequently transported to [facility] for further care and evaluation of the aforementioned symptoms. The patient was seen and evaluated in the emergency department. All lab and imaging studies reviewed. Patient was found to have metabolic encephalopathy, hyponatremia, volume depletion, lactic acidosis. Patient admitted to medical floor due to increased risk of worsening symptoms for further care and evaluation. No reports of fever, chills, chest pain, palpitation, productive cough, skin rash, recent ill contacts, known exposure to COVID-19. No prior admission for review. No medication listed at time of admission for reconciliation. Advanced care planning conducted in ED. Past History Past Medical History: seizures Past Surgical History: No surgical history, Other (Reviewed) Social history: single, lives with family Family history: hypertension Medications and Allergies Allergies Allergy/AdvReac Type Severity Reaction Status Date / Time No Known Allergies Allergy Verified 06/04/21 02:30 Active Meds: Active Medications Acetaminophen (Acetaminophen 325 Mg Tab) 650 mg PO Q4H PRN PRN Reason: Pain MILD(1-3)/Fever >100.5/LINDSEY Al Hydrox/Mg Hydrox/Simethicone (Alum-Mag Hydroxide-Simethicone [phone]/5ml Oral Liqd 30 Ml) 30 ml PO Q4H PRN PRN Reason: Indigestion Enoxaparin Sodium (Enoxaparin 30 Mg/0.3 Ml Inj) 30 mg SUB-Q DAILY [facility]; Protocol Last Admin: 06/06/21 10:18 Dose: 30 mg Documented by: Levetiracetam 500 mg/ Dextrose 105 mls @ 400 mls/hr IV Q12HR [facility] Last Admin: 06/06/21 10:19 Dose: 400 mls/hr Documented by: Sodium Chloride (Nacl 0.45% 1000 Ml) 1,000 mls @ 50 mls/hr IV DIRECT [facility] Last Admin: 06/06/21 12:17 Dose: 50 mls/hr Documented by: Lorazepam (Lorazepam 2 Mg/Ml Vial) 2 mg IV Q1H PRN PRN Reason: Seizures Last Admin: 06/06/21 01:24 Dose: 2 mg Documented by: Magnesium Hydroxide (Magnesium Hydroxide (Mom) Oral Liqd Udc) 30 ml PO Q4H PRN PRN Reason: Constipation Naloxone HCl (Naloxone 0.4 Mg/1 Ml Inj) 0.1 mg IV Q2MIN PRN PRN Reason: Res Rate </= 8 or 02 SAT < 92% Ondansetron HCl (Ondansetron 4 Mg/2 Ml Inj) 4 mg IV Q8H PRN PRN Reason: Nausea And Vomiting Sodium Chloride (Sodium Chloride 0.9% 10 Ml Flush Syringe) 10 ml IV BID [facility] Last Admin: 06/06/21 10:18 Dose: 10 ml Documented by: Review of Systems ROS unobtainable: due to mental status Exam - Constitutional Vitals: Temp Pulse Resp BP Pulse Ox 98.0 F 99 H 18 99/65 96 06/06/21 04:59 06/06/21 12:32 06/06/21 04:59 06/06/21 04:59 06/06/21 12:05 General appearance: Present: mild distress, cachectic - EENT Eyes: Present: PERRL ENT: hearing intact, clear oral mucosa - Neck Neck: Present: supple, normal ROM - Respiratory Respiratory effort: normal Respiratory: bilateral: diminished - Cardiovascular Rhythm: regular Heart Sounds: Present: S1 & S2 - Extremities Extremities: abnormal (Bilateral lower extremity contracture) Peripheral Pulses: within normal limits - Abdominal General gastrointestinal: Present: soft, non-tender, non-distended, normal bowel sounds Female genitourinary: Present: normal - Integumentary Integumentary: Present: clear, dry, clammy - Musculoskeletal Musculoskeletal: generalized weakness - Psychiatric Psychiatric: no appropriate mood/affect, no intact judgment & insight, no memory intact - Neurologic Neurologic: CNII-XII intact, no focal deficits, no moves all extremities, no gait normal HEART Score - HEART Score Troponin: Troponin T 0.028 ng/mL (0.00-0.029) 06/04/21 04:02 Results - Labs CBC & Chem 7: 06/05/21 05:10 06/06/21 05:19 Labs: Abnormal lab results 06/06/21 Range/Units 05:19 Sodium 149 H (137-145) mmol/L Chloride 117.0 H (98-107) mmol/L BUN 27 H (7-17) mg/dL Glucose 118 H (65-100) mg/dL Assessment and Plan - Patient Problems (1) Hypernatremia Current Visit: Yes Status: Acute Plan to address problem: IV fluid resuscitation therapy, BMP, repeat BMP in a.m., (2) Lactic acid acidosis Current Visit: Yes Status: Acute Plan to address problem: IV for cessation therapy, supportive care. Repeat BMP in a.m. (3) Acute metabolic encephalopathy Current Visit: No Status: Acute Plan to address problem: Neuro check, seizure precaution, aspiration precaution, fall precaution, sup portive care. (4) Severe protein-calorie malnutrition Current Visit: No Status: Acute Plan to address problem: Increase protein intake, dietary supplementation (5) Vascular dementia Current Visit: Yes Status: Acute Qualifiers: Dementia behavioral disturbance: without behavioral disturbance Qualified Code(s): F01.50 - Vascular dementia without behavioral disturbance Plan to address problem: Verbal prompting, verbal redirection, supportive care. (6) Cerebral atherosclerosis Current Visit: Yes Status: Acute Plan to address problem: Risk factor reduction, supportive care, antiplatelet therapy as clinically indicated.. (7) Advance care planning Current Visit: Yes Status: Acute Plan to address problem: Disease education conducted, care plan discussed, diagnosis discussed, prognosis discussed. Patient family acknowledges understanding and agreement with care plan. Patient daughter elects to have home hospice evaluation. +30 minutes. (8) DVT prophylaxis Current Visit: No Status: Acute Plan to address problem: SCD to bilateral lower extremities while in bed, prophylactic anticoagulation.
[2021-06-07 05:51] LABS: Blood Urea Nitrogen 23 mg/dL (7-17); Calcium 8.5 mg/dL (8.4-10.2); Hemolysis Index 11
[2021-06-07 06:02] LABS: BUN/Creatinine Ratio 38
[2021-06-07] MEDS: ENOXAPARIN 30 MG/0.3 ML INJ SUB-Q SCH (09:21)
[2021-06-07] MEDS: levETIRAcetam 500 MG in DEXTROSE 5% IN WATER 100 ML IV SCH ×2 (09:22→22:40)
--- NOTE | 2021-06-07 10:18 | Progress Note ---
Assessment and Plan Assessment and plan: (1) Hypernatremia IV fluid resuscitation therapy, BMP, repeat BMP in a.m., Resolved. (2) Lactic acid acidosis IV for cessation therapy, supportive care. Repeat BMP in a.m. (3) Acute metabolic encephalopathy Neuro check, seizure precaution, aspiration precaution, fall precaution, supportive care. (4) Severe protein-calorie malnutrition Increase protein intake, dietary supplementation (5) DVT prophylaxis SCD to bilateral lower extremities while in bed, prophylactic anticoagulation. (6) Vascular dementia Verbal prompting, verbal redirection, supportive care. (7) Cerebral atherosclerosis Risk factor reduction, supportive care, antiplatelet therapy as clinically indicated.. (8) disposition Await for hospice placement History Interval history: No new issues overnight Hospitalist Physical - Constitutional Vitals: Temp Pulse Resp BP Pulse Ox 99.0 F 90 20 125/87 96 06/07/21 04:31 06/07/21 00:45 06/07/21 04:31 06/07/21 04:31 06/06/21 22:00 General appearance: Present: mild distress, cachectic - EENT Eyes: Present: PERRL, EOM intact ENT: hearing intact, clear oral mucosa, dentition normal - Neck Neck: Present: supple, normal ROM - Respiratory Respiratory effort: normal Respiratory: bilateral: CTA - Cardiovascular Rhythm: regular Heart Sounds: Present: S1 & S2. Absent: gallop, rub - Extremities Extremities: no ischemia, No edema, Full ROM - Abdominal General gastrointestinal: soft, non-tender, non-distended, normal bowel sounds - Integumentary Integumentary: Present: clear, warm, dry - Neurologic Neurologic: CNII-XII intact, moves all extremities HEART Score - HEART Score Troponin: Troponin T 0.028 ng/mL (0.00-0.029) 06/04/21 04:02 Results - Labs CBC & Chem 7: 06/05/21 05:10 06/07/21 04:52 Labs: Laboratory Last Values WBC 6.5 K/mm3 (4.5-11.0) 06/05/21 05:10 RBC 3.49 M/mm3 (3.65-5.03) L 06/05/21 05:10 Hgb 11.4 gm/dl (10.1-14.3) 06/05/21 05:10 Hct 33.4 % (30.3-42.9) D 06/05/21 05:10 MCV 96 fl (79-97) 06/05/21 05:10 MCH 33 pg (28-32) H 06/05/21 05:10 MCHC 34 % (30-34) 06/05/21 05:10 RDW 15.2 % (13.2-15.2) 06/05/21 05:10 Plt Count 162 K/mm3 (140-440) 06/05/21 05:10 Lymph % (Auto) 21.0 % (13.4-35.0) 06/05/21 05:10 [place] % (Auto) 3.9 % (0.0-7.3) 06/05/21 05:10 Eos % (Auto) 0.6 % (0.0-4.3) 06/05/21 05:10 Baso % (Auto) 0.1 % (0.0-1.8) 06/05/21 05:10 Lymph # (Auto) 1.4 K/mm3 (1.2-5.4) 06/05/21 05:10 [place] # (Auto) 0.3 K/mm3 (0.0-0.8) 06/05/21 05:10 Eos # (Auto) 0.0 K/mm3 (0.0-0.4) 06/05/21 05:10 Baso # (Auto) 0.0 K/mm3 (0.0-0.1) 06/05/21 05:10 Seg Neutrophils % 74.4 % (40.0-70.0) H 06/05/21 05:10 Seg Neutrophils # 4.9 K/mm3 (1.8-7.7) 06/05/21 05:10 PT 14.1 Sec. (12.2-14.9) 06/04/21 02:28 INR 1.04 (0.87-1.13) 06/04/21 02:28 APTT 27.2 Sec. (24.2-36.6) 06/04/21 02:28 Sodium 143 mmol/L (137-145) 06/07/21 04:52 Potassium 4.0 mmol/L (3.6-5.0) 06/07/21 04:52 Chloride 111.5 mmol/L (98-107) H 06/07/21 04:52 Carbon Dioxide 25 mmol/L (22-30) 06/07/21 04:52 Anion Gap 11 mmol/L 06/07/21 04:52 BUN 23 mg/dL (7-17) H 06/07/21 04:52 Creatinine 0.6 mg/dL (0.6-1.2) 06/07/21 04:52 Estimated GFR > 60 ml/min 06/07/21 04:52 BUN/Creatinine Ratio 38 % 06/07/21 04:52 Glucose 88 mg/dL (65-100) 06/07/21 04:52 POC Glucose 99 mg/dL (70-105) 06/04/21 17:32 Lactic Acid 2.30 mmol/L (0.7-2.0) H* 06/04/21 07:54 Calcium 8.5 mg/dL (8.4-10.2) 06/07/21 04:52 Total Bilirubin 0.40 mg/dL (0.1-1.2) 06/05/21 05:10 AST 20 units/L (5-40) 06/05/21 05:10 ALT 9 units/L (7-56) 06/05/21 05:10 Alkaline Phosphatase 95 units/L (35-129) 06/05/21 05:10 Ammonia 29.0 umol/L (25-60) 06/04/21 02:28 Total Creatine Kinase 64 units/L (30-135) 06/04/21 02:28 Troponin T 0.028 ng/mL (0.00-0.029) 06/04/21 04:02 Total Protein 6.3 g/dL (6.3-8.2) D 06/05/21 05:10 Albumin 2.4 g/dL (3.9-5) L 06/05/21 05:10 Albumin/Globulin Ratio 0.6 % 06/05/21 05:10 Urine Color Yellow (Yellow) 06/04/21 03:07 Urine Turbidity Clear (Clear) 06/04/21 03:07 Urine pH 5.0 (5.0-7.0) 06/04/21 03:07 Ur Specific [place] 1.025 (1.003-1.030) 06/04/21 03:07 Urine Protein 30 mg/dl mg/dL (Negative) 06/04/21 03:07 Urine Glucose (UA) Neg mg/dL (Negative) 06/04/21 03:07 Urine Ketones Neg mg/dL (Negative) 06/04/21 03:07 Urine Blood Mod (Negative) 06/04/21 03:07 Urine Nitrite Neg (Negative) 06/04/21 03:07 Urine Bilirubin Neg (Negative) 06/04/21 03:07 Urine Urobilinogen 2.0 mg/dL (<2.0) 06/04/21 03:07 Ur Leukocyte Esterase Neg (Negative) 06/04/21 03:07 Urine WBC (Auto) 1.0 /HPF (0.0-6.0) 06/04/21 03:07 Urine RBC (Auto) 5.0 /HPF (0.0-6.0) 06/04/21 03:07 U Epithel Cells (Auto) 1.0 /HPF (0-13.0) 06/04/21 03:07 Microbiology: Microbiology 06/04/21 02:28 Peripheral/Venous Blood Culture - Preliminary NO GROWTH AFTER 72 HOURS 06/04/21 02:21 Peripheral/Venous Blood Culture - Preliminary NO GROWTH AFTER 72 HOURS 06/04/21 03:07 Urine,[place] Urine Culture - Final NO GROWTH AFTER 48 HOURS [place]/IV: Voiding Method External Female Catheter Active Medications - Current Medications Current Medications: Generic Name Dose Route Start Last Admin Trade Name Freq PRN Reason Stop Dose Admin Acetaminophen 650 mg 06/04/21 05:47 Acetaminophen 325 Mg Tab PO Q4H PRN Pain MILD(1-3)/Fever >100.5/LINDSEY Al Hydrox/Mg Hydrox/Simethicone 30 ml 06/04/21 05:47 Alum-Mag Hydroxide-Simethicone [phone]/5ml Oral Liqd 30 Ml PO Q4H PRN Indigestion Enoxaparin Sodium 30 mg 06/04/21 10:00 06/07/21 09:21 Enoxaparin 30 Mg/0.3 Ml Inj SUB-Q 30 mg DAILY [facility] Administration Protocol Levetiracetam 500 mg/ Dextrose 105 mls @ 400 mls/hr 06/04/21 10:00 06/07/21 09:22 IV 400 mls/hr Q12HR ANDRES Administration Sodium Chloride 1,000 mls @ 50 mls/hr 06/06/21 13:00 06/06/21 17:55 Nacl 0.45% 1000 Ml IV 50 mls/hr DIRECT [facility] Administration Lorazepam 2 mg 06/04/21 05:54 06/06/21 01:24 Lorazepam 2 Mg/Ml Vial IV 2 mg Q1H PRN Administration Seizures Magnesium Hydroxide 30 ml 06/04/21 05:47 Magnesium Hydroxide (Mom) Oral Liqd Udc PO Q4H PRN Constipation Naloxone HCl 0.1 mg 06/04/21 05:47 Naloxone 0.4 Mg/1 Ml Inj IV Q2MIN PRN Res Rate </= 8 or 02 SAT < 92% Ondansetron HCl 4 mg 06/04/21 05:47 Ondansetron 4 Mg/2 Ml Inj IV Q8H PRN Nausea And Vomiting Sodium Chloride 10 ml 06/04/21 10:00 06/07/21 09:21 Sodium Chloride 0.9% 10 Ml Flush Syringe IV 10 ml BID ANDRES Administration Nutrition/Malnutrition Assess - Dietary Evaluation Nutrition/Malnutrition Findings: Nutrition Notes Start: 06/04/21 07:21 Freq: Status: Active Protocol: Document 06/04/21 07:22 (Rec: 06/04/21 07:25 [email or web address]) Nutrition Notes Need for Assessment generated from: MD Order Initial or Follow up Assessment Other Pertinent Diagnosis AMS, dehydration, seizure Current Diet regular Labs/Tests Na 158 Pertinent Medications reviewed Height 5 ft 1 in Weight 34 kg [place] Body Weight (kg) 47.72 BMI 14.1 Weight Status Emaciated Subjective/Other Information MD consult for ONS. Pt on hold in ED. #1 Nutrition Diagnosis Predicted suboptimal energy intake Etiology advanced age As Evidenced by Signs and Symptoms BMI 14.2 Is patient on ventilator? No Is Patient Ambulatory and/or Out of Bed No REE-([facility]-confined to bed) [phone] Kcal/Kg value to use for calculation 37 Approximate Energy Requirements Using 1258 kcal/Kg Calculation Used for Recommendations Kcal/kg Additional Notes Protein: (1.2-1.5g/kg) 41-51g Fluid: 1 ml/kcal Nutrition Intervention Change Diet Order: continue Add Supplement/Snack (indicate name/kcal Ensure Enlive BID /protein ) Provides kCal: 700 Provides Protein (gm) 40 Goal #1 Meet at least 75% of energy and protein needs via PO and ONS Anticipated Discharge Needs: regular with ONS BID Follow-Up By: 06/07/21 Additional Comments FU for assessment, intakes and ONS tolerance
[2021-06-07] MEDS: SODIUM CHLORIDE 0.45% 1000 ML 1,000 ML IV SCH (12:26)
[2021-06-08 05:37] VITALS: BP 111/78
[2021-06-08] MEDS: SODIUM CHLORIDE 0.45% 1000 ML 1,000 ML IV SCH (06:42)
[2021-06-08] MEDS: ENOXAPARIN 30 MG/0.3 ML INJ SUB-Q SCH (09:53)
[2021-06-08] MEDS: levETIRAcetam 500 MG in DEXTROSE 5% IN WATER 100 ML IV SCH (09:53)
--- NOTE | 2021-06-08 12:12 | Discharge Summary ---
Providers - Providers Date of Admission: 06/07/21 11:48 Date of discharge: 06/08/21 Attending physician: TRES CARRASQUILLO 06/04/21 Consult to Case Management [CONS] Routine Services Needed at Discharge: Water Service Supervisor Physical Therapy Occupational Therapy Notified:: ALVIN 06/04/21 05:49 Consult to Dietitian/Nutrition [CONS] Routine Physician Instructions: Reason For Exam: Reason for Consult: Pt needs oral supplement 06/08/21 06:29 Consult to Wound/ET Nurse [CONS] Routine Reason For Exam: wound eval Primary care physician: [employer] Hospitalization Condition: Critical Hospital course: Hospital course: 86 YO Female with Severe Malnutrition, Debility, Vascular Dementia, Cerebral Atherosclerosis, Seizure Disorder presents to ED for evaluation. Patient had diminished cognition and was nonverbal at baseline and unable to provide history. Patient history provided by EMS staff, ED staff, . As per daughter the patient has experienced decreased oral intake, progressive weakness, and was nonverbal and is unable to make needs known or follow commands. The patient is bedbound and nonambulatory. Patient requires 6/6 assistance with activities of daily living. Patient has a palliative performance score 30%. Patient has experienced weight loss over the past 30 days. the patient was found to have seizure activity today. EMS was notified and upon arrival the patient was found to be in distress and subsequently transported to [facility] for further care and evaluation of the aforementioned symptoms. Patient was found to have metabolic encephalopathy, hyponatremia, volume depletion, lactic acidosis. Patient admitted to medical floor due to increased risk of worsening symptoms for further care and evaluation. No reports of fever, chills, chest pain, palpitation, productive cough, skin rash, recent ill contacts, known exposure to COVID-19. No prior admission for review. It was thought that patient altered mental status may be secondary to continued seizure. No medication listed at time of admission for reconciliation. Advanced care planning conducted in ED. the patient was treated with IV fluid resuscitation therapy and supportive care. Patient is currently medically optimized with overall poor long-term prognosis. Patient daughter notified and informed of patient prognosis. Patient daughter elects to have home hospice evaluation. Patient altered mental status possibly secondary to continued seizure activity. Will benefit to treat status seizures with inpatient hospice. Plan is to discharge patient to inpatient hospice Patient seen and evaluated prior to discharge with no significant new significant exam findings. Patient discharged inpatient under hospice care. 25 minutes dedicated to patient discharge and coordination of care. Disposition: [id number] ([facility]) Final Discharge Diagnosis (Prints w/discharge instructions): Uncontrolled seizure disorder #2 acute renal failure #3 failure to thrive Core Measure Documentation - Palliative Care Palliative Care/ Comfort Measures: Hospice Care - Core Measures Any of the following diagnoses?: none Exam - Constitutional Vitals: Temp Pulse Resp BP Pulse Ox 98.5 F 95 H 18 111/78 97 06/08/21 05:36 06/08/21 05:36 06/08/21 05:36 06/08/21 05:36 06/08/21 05:36 General appearance: Present: other (Completely altered dependent on 6 out of 6 ADLs.) - Cardiovascular Rhythm: regular Heart Sounds: Present: S1 & S2. Absent: rub, click - Extremities Extremity abnormal: other (Contracted) - Abdominal General gastrointestinal: Present: soft, non-tender, non-distended, hypoactive bowel sounds, other (Decreased p.o. intake. Family refuses any further disease directed therapy.) - Musculoskeletal Musculoskeletal: generalized weakness Plan Activity: other (Bedbound) Weight Bearing Status: Non-Weight Bearing Diet: advance as tolerated, other (Patient severe protein deficiency malnutrition. Not eating or drinking. Comfort measures only) Follow up with: PRIMARY CARE, [Primary Care Provider] - 3-5 Days
== END 2021-06-08 18:10 | disposition hospice, inpatient (51) | DRG 100 ==
LOC: ED 02:00 → 3A 04:24 → OBSVTOIN 06-07 11:48
PROVIDERS: ADMIT Hospitalist; ATTEND Internal Medicine
DX: G40.909 Epilepsy, unspecified, not intractable, without status epilepticus (principal); E43 Unspecified severe protein-calorie malnutrition; G93.41 Metabolic encephalopathy; E87.2 Acidosis; E87.0 Hyperosmolality and hypernatremia; E87.1 Hypo-osmolality and hyponatremia; N17.9 Acute kidney failure, unspecified; Z68.1 Body mass index [BMI] 19.9 or less, adult; I67.2 Cerebral atherosclerosis; E86.0 Dehydration; F01.50 Vascular dementia, unspecified severity, without behavioral disturbance, psychotic disturbance, mood disturbance, and anxiety; E86.9 Volume depletion, unspecified; Z79.899 Other long term (current) drug therapy; Z79.891 Long term (current) use of opiate analgesic; Z79.01 Long term (current) use of anticoagulants; Z82.49 Family history of ischemic heart disease and other diseases of the circulatory system
CPT/HCPCS: 36415; 70450; 71045; 80048; 80053; 81001; 82140; 82550; 82962; 84484; 85025; 85610; 85730; 87040; 87086; 93005; 99291; G0378; J0692; J1650; J1953; J2060; J3475; J7030